=== PATIENT | female | born 1935 | race Caucasian/White ===

== ENCOUNTER 2019-03-07 14:46 | Observation (INO) | payer BC, MEDICARE ==
--- NOTE | 2019-03-07 15:12 | EDM.PDOC ---
ED HPI GENERAL MEDICAL PROBLEM - General Stated Complaint: BACK PAIN Time Seen by Provider: 03/07/19 14:50 Source of Information: Reports: Patient History Limitations: Reports: No Limitations - History of Present Illness INITIAL COMMENTS - FREE TEXT/NARRATIVE: This is a 83yo F who uses a walker that states she woke up this morning and was unable to get out of bed. She notes weakness of both legs and some tenderness or weakness of the right hip. It was reported that she has some back pain but then she states the weakness just hit her and she has been unable to get out of bed. Patient unable to recall date, time, month or year. She stated it was April, Sunday and then we told the patient. Later when we asked the patient she stated it was March and Sunday. Patient unable to recall items mentioned as well. Patient states she lived in a care center in the [facility] with hundreds of people. She states she left and lives in [facility] in a trailer by herself but with neighbors. She has daughters that live in the [facility]. Onset: Sudden Duration: Hour(s): Location: Reports: Pelvis, Lower Extremity, Left, Lower Extremity, Right Improves with: Reports: None Worsens with: Reports: None Associated Symptoms: Reports: Weakness - Related Data Allergies Allergy/AdvReac Type Severity Reaction Status Date / Time No Known Allergies Allergy Verified 03/07/19 15:34 Home Meds: Home Meds Aspirin 81 mg PO DAILY 03/19/16 [History] Acetaminophen [Tylenol Arthritis Pain] 650 mg PO Q4HR PRN #0 tab.er 04/25/16 [Rx ] Calcium Carbonate [Tums] 500 mg PO Q2HR PRN #0 tab.chew 04/25/16 [Rx] Docusate Sodium/Sennosides [Senna Plus] 1 tab PO BID tablet 04/25/16 [Rx] Nicotine [Habitrol] 14 mg TRDERM DAILY #30 patch 04/25/16 [Rx] Losartan [Cozaar] 25 mg PO DAILY 03/07/19 [History] Metoprolol Tartrate [Lopressor] 25 mg PO Q12HR 03/07/19 [History] Mirtazapine 7.5 mg PO DAILY 03/07/19 [History] amLODIPine [Norvasc] 5 mg PO DAILY 03/07/19 [History] atorvaSTATin [Lipitor] 10 mg PO BEDTIME 03/07/19 [History] Past Medical History HEENT History: Reports: Cataract Cardiovascular History: Reports: None, High Cholesterol, Hypertension Respiratory History: Reports: None Gastrointestinal History: Reports: Other (See Below) Other Gastrointestinal History: hx of colon ca with colectomy Other RN ONCOLOGY History: parity: 4, gravity: 4 , vaginal deliveries Musculoskeletal History: Reports: Back Pain, Chronic, Other (See Below) Other Musculoskeletal History: LE muscle weakness Neurological History: Reports: CVA Oncologic (Cancer) History: Reports: Colon Other Oncologic History: Hx of colon cancer- removed - Past Surgical History HEENT Surgical History: Reports: Cataract Surgery Musculoskeletal Surgical History: Reports: Hip Replacement, ORIF Social & Family History - Family History Family Medical History: Noncontributory ED ROS GENERAL - Review of Systems Review Of Systems: ROS reveals no pertinent complaints other than HPI. ED EXAM, NEURO - Physical Exam Exam: See Below Exam Limited By: No Limitations General Appearance: Alert, WD/WN, No Apparent Distress Eye Exam: Bilateral Eye: EOMI, PERRL Ears: Normal External Exam Nose: Normal Inspection Throat/Mouth: Normal Inspection Head Exam: Atraumatic, Normocephalic Neck: Normal Inspection, Supple, Non-Tender Respiratory/Chest: No Respiratory Distress, Lungs Clear, Normal Breath Sounds Cardiovascular: Normal Peripheral Pulses, Regular Rate, Rhythm GI/Abdominal: Normal Bowel Sounds Neurological: Alert, Normal Mood/Affect, Other (unable to get up per patient and states her legs are weak) Back Exam: Normal Inspection Extremities: Normal Inspection Psychiatric: Normal Affect, Normal Mood Skin Exam: Warm, Dry, Intact Course - Orders/Labs/Meds Orders: Active Orders 24 hr Category Date Time Status Patient Status [ADT] Routine ADT 03/07/19 15:55 Ordered Vital Signs [RC] Q4H Care 03/07/19 15:55 Ordered Heart Healthy Diet [DIET] Diet 03/07/19 Dinner Ordered Abdomen 1V Flat [CR] Stat Exams 03/07/19 14:59 Ordered Hip Min 2V w Pelvis Bi [CR] Stat Exams 03/07/19 14:59 Ordered Thoracolumbar 2V [CR] Stat Exams 03/07/19 14:59 Ordered CBC WITH AUTO DIFF [HEME] AM Lab 03/08/19 05:11 Ordered COMPREHENSIVE METABOLIC PN,CMP [CHEM] AM Lab 03/08/19 05:11 Ordered REVERSE T3, SERUM Stat Lab 03/07/19 15:53 Ordered THYROXINE (T4) FREE, DIRECT, S Stat Lab 03/07/19 15:53 Ordered UA RFX HARJINDER AND CULT IF INDIC [URIN] Stat Lab 03/07/19 15:02 Ordered VITAMIN B1 (THIAMINE), BLOOD Stat Lab 03/07/19 15:54 Ordered VITAMIN B12 Stat Lab 03/07/19 15:54 Ordered VITAMIN D, 25-HYDROXY Stat Lab 03/07/19 15:54 Ordered Acetaminophen [Tylenol Arthritis Pain] Med 03/07/19 15:56 Ordered 650 mg PO Q4HR PRN Aspirin Med 03/08/19 08:00 Ordered 81 mg PO DAILY Calcium Carbonate [Tums] Med 03/07/19 15:56 Ordered 500 mg PO Q2HR PRN Docusate Sodium/Sennosides [Senna Plus] Med 03/07/19 20:00 Ordered 1 tab PO BID Losartan [Cozaar] Med 03/08/19 08:00 Ordered 25 mg PO DAILY Metoprolol Tartrate [Lopressor] Med 03/07/19 20:00 Ordered 25 mg PO Q12HR Mirtazapine [Mirtazapine] Med 03/08/19 08:00 Ordered 7.5 mg PO DAILY Sodium Chloride 0.9% [Normal Saline] 1,000 ml Med 03/07/19 16:00 Ordered IV ASDIRECTED amLODIPine [Norvasc] Med 03/08/19 08:00 Ordered 5 mg PO DAILY atorvaSTATin [Lipitor] Med 03/07/19 20:00 Ordered 10 mg PO BEDTIME Medication Orders Acetaminophen (Tylenol Arthritis Pain) 650 mg PO Q4HR PRN PRN Reason: Pain Amlodipine Besylate (Norvasc) 5 mg PO DAILY [facility] Aspirin (Aspirin) 81 mg PO DAILY [facility] Atorvastatin Calcium (Lipitor) 10 mg PO BEDTIME [facility] Calcium Carbonate/Glycine (Tums) 500 mg PO Q2HR PRN PRN Reason: Indigestion Sodium Chloride (Normal Saline) 1,000 mls @ 100 mls/hr IV ASDIRECTED [facility] Losartan Potassium (Cozaar) 25 mg PO DAILY [facility] Metoprolol Tartrate (Lopressor) 25 mg PO Q12HR [facility] Non-Formulary Medication (Mirtazapine [Mirtazapine]) 7.5 mg PO DAILY [facility] Senna/Docusate Sodium (Senna Plus) 1 tab PO BID [facility] Labs: Laboratory Tests 03/07/19 03/07/19 03/07/19 Range/Units 15:00 15:00 15:00 WBC 16.0 H D (4.0-11.0) K/uL RBC 4.79 (3.80-5.80) M/uL Hgb 14.8 D (11.5-16.5) g/dL Hct 43.1 D (37.0-47.0) % MCV 90 (76-96) fL MCH 30.9 (27.0-32.0) pg MCHC 34.3 (31.0-35.0) g/dL RDW 14.6 (11.0-16.0) % Plt Count 236 (150-500) K/uL MPV 9.8 (6.0-10.0) fL Neut % (Auto) 81.6 H (45.0-70.0) % Lymph % (Auto) 14.7 L (20.0-40.0) % [place] % (Auto) 3.5 (3.0-10.0) % Eos % (Auto) 0.1 L (1.0-5.0) % Baso % (Auto) 0.1 (0.0-0.5) % Neut # (Auto) 13.02 H (2.00-7.50) K/uL Lymph # (Auto) 2.34 (1.50-4.00) K/uL [place] # (Auto) 0.56 (0.20-0.80) K/uL Eos # (Auto) 0.01 L (0.04-0.40) K/uL Baso # (Auto) 0.02 (0.02-0.10) K/uL Sodium 133 L (136-145) mmol/L Potassium 4.6 (3.5-5.1) mmol/L Chloride 97 L (98-107) mmol/L Carbon Dioxide 29.6 (21.0-32.0) mmol/L Anion Gap 11.0 (5.0-15.0) mmol/L BUN 15 (8-26) mg/dL Creatinine 0.87 (0.55-1.02) mg/dL Est Cr Clr Drug Dosing TNP Estimated GFR (MDRD) > 60 (>60) MLS/MIN BUN/Creatinine Ratio 17.2 (6-25) Glucose 132 H (74-100) mg/dL Calcium 9.3 (8.5-10.1) mg/dL TSH, Ultra Sensitive 47.751 H (0.358-3.740) uIU/mL Meds: Medications Generic Name Dose Route Start Last Admin Trade Name Freq PRN Reason Stop Dose Admin Acetaminophen 650 mg 03/07/19 15:56 Tylenol Arthritis Pain PO Q4HR PRN Pain Amlodipine Besylate 5 mg 03/08/19 08:00 Norvasc PO DAILY [facility] Aspirin 81 mg 03/08/19 08:00 Aspirin PO DAILY [facility] Atorvastatin Calcium 10 mg 03/07/19 20:00 Lipitor PO BEDTIME [facility] Calcium Carbonate/Glycine 500 mg 03/07/19 15:56 Tums PO Q2HR PRN Indigestion Sodium Chloride 1,000 mls @ 100 mls/hr 03/07/19 16:00 Normal Saline IV ASDIRECTED [facility] Losartan Potassium 25 mg 03/08/19 08:00 Cozaar PO DAILY [facility] Metoprolol Tartrate 25 mg 03/07/19 20:00 Lopressor PO Q12HR [facility] Non-Formulary Medication 7.5 mg 03/08/19 08:00 Mirtazapine [Mirtazapine] PO DAILY [facility] Senna/Docusate Sodium 1 tab 03/07/19 20:00 Senna Plus PO BID [facility] Departure - Departure Time of Disposition: 16:04 Disposition: Admitted As Inpatient 64 Condition: Good Clinical Impression: Delirium, Weakness, Hyponatremia, Elevated TSH Dementia Qualifiers: Dementia type: unspecified type Dementia behavioral disturbance: without behavioral disturbance Qualified Code(s): F03.90 - Unspecified dementia without behavioral disturbance Leukocytosis Qualifiers: Leukocytosis type: unspecified Qualified Code(s): D72.829 - Elevated white blood cell count, unspecified - Discharge Information Referrals: PCP,None [Primary Care Provider] - - My Orders Last 24 Hours: My Active Orders 03/07/19 14:59 Abdomen 1V Flat [CR] Stat Hip Min 2V w Pelvis Bi [CR] Stat Thoracolumbar 2V [CR] Stat 03/07/19 15:02 UA RFX HARJINDER AND CULT IF INDIC [URIN] Stat 03/07/19 15:53 REVERSE T3, SERUM Stat THYROXINE (T4) FREE, DIRECT, S Stat 03/07/19 15:54 VITAMIN B1 (THIAMINE), BLOOD Stat VITAMIN B12 Stat VITAMIN D, 25-HYDROXY Stat 03/07/19 15:55 Patient Status [ADT] Routine Vital Signs [RC] Q4H 03/07/19 15:56 Acetaminophen [Tylenol Arthritis Pain] 650 mg PO Q4HR PRN Calcium Carbonate [Tums] 500 mg PO Q2HR PRN 03/07/19 16:00 Sodium Chloride 0.9% [Normal Saline] 1,000 ml IV ASDIRECTED 03/07/19 20:00 Docusate Sodium/Sennosides [Senna Plus] 1 tab PO BID Metoprolol Tartrate [Lopressor] 25 mg PO Q12HR atorvaSTATin [Lipitor] 10 mg PO BEDTIME 03/07/19 Dinner Heart Healthy Diet [DIET] 03/08/19 05:11 CBC WITH AUTO DIFF [HEME] AM COMPREHENSIVE METABOLIC PN,CMP [CHEM] AM 03/08/19 08:00 Aspirin 81 mg PO DAILY Losartan [Cozaar] 25 mg PO DAILY Mirtazapine [Mirtazapine] 7.5 mg PO DAILY amLODIPine [Norvasc] 5 mg PO DAILY - Assessment/Plan Last 24 Hours: My Active Orders 03/07/19 14:59 Abdomen 1V Flat [CR] Stat Hip Min 2V w Pelvis Bi [CR] Stat Thoracolumbar 2V [CR] Stat 03/07/19 15:02 UA RFX HARJINDER AND CULT IF INDIC [URIN] Stat 03/07/19 15:53 REVERSE T3, SERUM Stat THYROXINE (T4) FREE, DIRECT, S Stat 03/07/19 15:54 VITAMIN B1 (THIAMINE), BLOOD Stat VITAMIN B12 Stat VITAMIN D, 25-HYDROXY Stat 03/07/19 15:55 Patient Status [ADT] Routine Vital Signs [RC] Q4H 03/07/19 15:56 Acetaminophen [Tylenol Arthritis Pain] 650 mg PO Q4HR PRN Calcium Carbonate [Tums] 500 mg PO Q2HR PRN 03/07/19 16:00 Sodium Chloride 0.9% [Normal Saline] 1,000 ml IV ASDIRECTED 03/07/19 20:00 Docusate Sodium/Sennosides [Senna Plus] 1 tab PO BID Metoprolol Tartrate [Lopressor] 25 mg PO Q12HR atorvaSTATin [Lipitor] 10 mg PO BEDTIME 03/07/19 Dinner Heart Healthy Diet [DIET] 03/08/19 05:11 CBC WITH AUTO DIFF [HEME] AM COMPREHENSIVE METABOLIC PN,CMP [CHEM] AM 03/08/19 08:00 Aspirin 81 mg PO DAILY Losartan [Cozaar] 25 mg PO DAILY Mirtazapine [Mirtazapine] 7.5 mg PO DAILY amLODIPine [Norvasc] 5 mg PO DAILY
[2019-03-07] MEDS ORDERED: Calcium Carbonate 500 MG Tab.Chew PO PRN (15:56)
[2019-03-07] MEDS: Sodium Chloride 0.9% 1,000 ML IV SCH (16:38)
[2019-03-07] MEDS: Acetaminophen 650 MG Tab.ER PO PRN (19:32)
[2019-03-07] MEDS: Metoprolol Tartrate 25 MG Tab PO SCH (19:32)
[2019-03-07] MEDS ORDERED: atorvaSTATin 10 MG Tab PO SCH (20:00)
[2019-03-08] MEDS: Sodium Chloride 0.9% 1,000 ML IV SCH ×3 (02:43→12:07)
[2019-03-08] MEDS: Acetaminophen 650 MG Tab.ER PO PRN ×2 (07:41→13:05)
[2019-03-08] MEDS: Metoprolol Tartrate 25 MG Tab PO SCH (07:43)
[2019-03-08] MEDS ORDERED: Losartan 25 MG Tab PO SCH (08:00)
[2019-03-08] MEDS ORDERED: Non-Formulary Medication 1 Each (Mirtazapine [Mirtazapine] 7.5 MG) PO SCH (08:00)
[2019-03-08] MEDS ORDERED: Aspirin 81 MG Tab.Chew PO SCH (08:00)
[2019-03-08] MEDS ORDERED: amLODIPine 5 MG Tab PO SCH (08:00)
[2019-03-08 12:15] VITALS: BP 122/80; PULSE 56
--- NOTE | 2019-03-08 12:49 | PCM.DCSUM1 ---
Discharge Summary - Hospital Course Diagnosis: Stroke: No - Discharge Data Discharge Date: 03/08/19 Discharge Disposition: Home, Self-Care 01 Condition: Fair - Discharge Diagnosis/Problem(s) (1) Delirium SNOMED Code(s): 7873664 ICD Code: R41.0 - DISORIENTATION, UNSPECIFIED Status: Resolved Priority: High Current Visit: Yes Problem Details: This is due in part to dementia or CVA related history. She was dehydrated and concerns of nutrition and hydration have been addressed with family. Family understand the need for further monitoring and cares. (2) Dementia SNOMED Code(s): 07952846 ICD Code: F03.90 - UNSPECIFIED DEMENTIA WITHOUT BEHAVIORAL DISTURBANCE Status: Suspected Priority: High Current Visit: Yes Problem Details: Family have noticed memory issues in the past and felt it may have been from her CVA. Her CVA is over 2 years ago. Discussed with reanna Perrin regarding care and close monitoring and that patient should not be left alone or live alone any more but that with close support that she may be able to transition to care with family. At this time family feel comfortable to have members check on her daily at [facility] and do not have any concerns with this. Discussed risks and issues that may occur and family understand the risks and are willing to check in on her daily and more as needed. Discussed the eventual need for constant care and redirection and living with someone. Aydin will discuss further with family of the concerns. Qualifiers: Dementia type: unspecified type Dementia behavioral disturbance: without behavioral disturbance Qualified Code(s): F03.90 - Unspecified dementia without behavioral disturbance (3) Elevated TSH SNOMED Code(s): 583144589 ICD Code: R79.89 - OTHER SPECIFIED ABNORMAL FINDINGS OF BLOOD CHEMISTRY Status: Acute Priority: High Current Visit: Yes Problem Details: Patient will follow up in clinic this week for T3 and T4 results and management. Family notified and agree with plan of care and f/u. (4) Hyponatremia SNOMED Code(s): 61355979 ICD Code: E87.1 - HYPO-OSMOLALITY AND HYPONATREMIA Status: Acute Current Visit: Yes (5) Leukocytosis SNOMED Code(s): 353028162, 061410985 ICD Code: D72.829 - ELEVATED WHITE BLOOD CELL COUNT, UNSPECIFIED Status: Acute Current Visit: Yes Problem Details: Resolving. Likely from dehydration and stress. F/u in clinic as directed. Qualifiers: Leukocytosis type: unspecified Qualified Code(s): D72.829 - Elevated white blood cell count, unspecified (6) Weakness SNOMED Code(s): 34368303 ICD Code: R53.1 - WEAKNESS Status: Chronic Priority: High Current Visit : Yes Problem Details: Chronic weakness and when dehydrated she became too weak to get up. After hydration patient is doing well and fully ambulatory without a walker. Counseled family members of this situation and concerns. Family will follow up in clinic and at home. (7) CVA (cerebral vascular accident) SNOMED Code(s): 788020367 ICD Code: I63.9 - CEREBRAL INFARCTION, UNSPECIFIED Status: Acute Current Visit: No Problem Details: History of CVA 2 years ago. Per family it did cause her to use a walker due to weakness and have memory issues. - Patient Summary/Data Consults: Consultations 03/07/19 16:17 Consult to Occupational Therapy [OT Evaluation and Treatment] [CONS] Routine Please Evaluate and Treat. OT Reason for Consult: ADL's This query below is only for informational purposes and is not editable. Admission Diagnosis/Problem: Delirium Consult to Physical Therapy [PT Evaluation and Treatment] [CONS] Routine Please Evaluate and Treat. PT Reason for Consult: Ambulation This query below is only for informational purposes and is not editable. Admission Diagnosis/Problem: Delirium - Patient Instructions Diet: Usual Diet as Tolerated Activity: As Tolerated, No Strenuous Activities, Rest and Relax Today - Discharge Plan Home Medications: Home Meds Aspirin 81 mg PO DAILY 03/19/16 [History] Acetaminophen [Tylenol Arthritis Pain] 650 mg PO Q4HR PRN #0 tab.er 04/25/16 [Rx ] Calcium Carbonate [Tums] 500 mg PO Q2HR PRN #0 tab.chew 04/25/16 [Rx] Docusate Sodium/Sennosides [Senna Plus] 1 tab PO BID tablet 04/25/16 [Rx] Nicotine [Habitrol] 14 mg TRDERM DAILY #30 patch 04/25/16 [Rx] Losartan [Cozaar] 25 mg PO DAILY 03/07/19 [History] Metoprolol Tartrate [Lopressor] 25 mg PO Q12HR 03/07/19 [History] Mirtazapine 7.5 mg PO DAILY 03/07/19 [History] amLODIPine [Norvasc] 5 mg PO DAILY 03/07/19 [History] atorvaSTATin [Lipitor] 10 mg PO BEDTIME 03/07/19 [History] Referrals: PCP,None [Primary Care Provider] - - Discharge Summary/Plan Comment DC Time >30 min.: Yes Discharge Summary/Plan Comment: Called Aydin [phone] Left message for Katarina Yoan [phone] (Aydin will discuss with Katarina) Left message for Lino [phone] Left message for Michelle [phone] Discussed in length care for patient with Aydin when he called back. He will discuss with the rest of the family but both Aydin and Katarina are POA. Discussed dementia care and the need for multimedia coordinator care and that she is at a point where she likely cannot live alone. Discussed dehydration, poor nutrition , and other factors. Discussed elevated TSH and f/u T3 T4 in the clinic for management of likely hypothyroidism. Discussed close monitoring and Aydin will arrange for family to check in daily and more as needed for her mother at [place]. Aydin and other 3 daughters live in the [facility]. Called and discussed management and close monitoring with Francisco (Niece) who will be picking up Mrs. Colunga. She understands the need for close monitoring and check in with Brittni. Neighbor Jen Jones did stop by. Fatmata Diggs was unreachable despite being an emergency contact. Patient does want to go home and denies any pain, or weakness at this time. We will discharge to care of family and have her f/u in clinic as directed. Family (Aydin) agree with close care and monitoring and follow up of this patient. - Patient Data Vitals - Most Recent: Last Vital Signs Temp 36.6 C 03/08/19 12:00 Pulse 56 L 03/08/19 12:00 Resp 17 03/08/19 12:00 BP 122/80 03/08/19 12:00 Pulse Ox 97 03/08/19 12:00 Weight - Most Recent: 61.961 kg I&O - Last 24 hours: Intake & Output 03/07/19 03/08/19 03/08/19 22:59 06:59 14:59 Intake Total 200 1200 Balance 200 1200 Lab Results - Last 24 hrs: Laboratory Results - last 24 hr 03/07/19 03/07/19 03/07/19 Range/Units 15:00 15:00 15:00 WBC 16.0 H D (4.0-11.0) K/uL RBC 4.79 (3.80-5.80) M/uL Hgb 14.8 D (11.5-16.5) g/dL Hct 43.1 D (37.0-47.0) % MCV 90 (76-96) fL MCH 30.9 (27.0-32.0) pg MCHC 34.3 (31.0-35.0) g/dL RDW 14.6 (11.0-16.0) % Plt Count 236 (150-500) K/uL MPV 9.8 (6.0-10.0) fL Neut % (Auto) 81.6 H (45.0-70.0) % Lymph % (Auto) 14.7 L (20.0-40.0) % [place] % (Auto) 3.5 (3.0-10.0) % Eos % (Auto) 0.1 L (1.0-5.0) % Baso % (Auto) 0.1 (0.0-0.5) % Neut # (Auto) 13.02 H (2.00-7.50) K/uL Lymph # (Auto) 2.34 (1.50-4.00) K/uL [place] # (Auto) 0.56 (0.20-0.80) K/uL Eos # (Auto) 0.01 L (0.04-0.40) K/uL Baso # (Auto) 0.02 (0.02-0.10) K/uL Sodium 133 L (136-145) mmol/L Potassium 4.6 (3.5-5.1) mmol/L Chloride 97 L (98-107) mmol/L Carbon Dioxide 29.6 (21.0-32.0) mmol/L Anion Gap 11.0 (5.0-15.0) mmol/L BUN 15 (8-26) mg/dL Creatinine 0.87 (0.55-1.02) mg/dL Est Cr Clr Drug Dosing TNP Estimated GFR (MDRD) > 60 (>60) MLS/MIN BUN/Creatinine Ratio 17.2 (6-25) Glucose 132 H (74-100) mg/dL Calcium 9.3 (8.5-10.1) mg/dL Total Bilirubin (0.0-1.0) mg/dL AST (15-37) U/L ALT (12-78) U/L Alkaline Phosphatase (46-116) U/L Total Protein (6.4-8.2) g/dL Albumin (3.4-5.0) g/dL Globulin (2.2-4.2) g/dL Albumin/Globulin Ratio (0.8-2.0) TSH, Ultra Sensitive 47.751 H (0.358-3.740) uIU/mL Urine Color Urine Appearance (CLEAR) Urine pH (5.0-8.0) Ur Specific [place] (1.003-1.030) Urine Protein (NEGATIVE) mg/dL Urine Glucose (UA) (NEGATIVE) mg/dL Urine Ketones (NEGATIVE) mg/dL Urine Occult Blood (NEGATIVE) Urine Nitrite (NEGATIVE) Urine Bilirubin (NEGATIVE) Urine Urobilinogen (0.2-1.0) E.U./dL Ur Leukocyte Esterase (NEGATIVE) Urine RBC /HPF Urine WBC /HPF Amorphous Sediment /HPF 03/07/19 03/08/19 03/08/19 Range/Units Unknown 08:23 08:23 WBC 12.3 H D (4.0-11.0) K/uL RBC 4.36 (3.80-5.80) M/uL Hgb 13.4 (11.5-16.5) g/dL Hct 39.5 (37.0-47.0) % MCV 91 (76-96) fL MCH 30.7 (27.0-32.0) pg MCHC 33.9 (31.0-35.0) g/dL RDW 14.6 (11.0-16.0) % Plt Count 221 (150-500) K/uL MPV 9.4 (6.0-10.0) fL Neut % (Auto) 69.4 (45.0-70.0) % Lymph % (Auto) 24.8 (20.0-40.0) % [place] % (Auto) 5.4 (3.0-10.0) % Eos % (Auto) 0.2 L (1.0-5.0) % Baso % (Auto) 0.2 (0.0-0.5) % Neut # (Auto) 8.51 H (2.00-7.50) K/uL Lymph # (Auto) 3.04 (1.50-4.00) K/uL [place] # (Auto) 0.66 (0.20-0.80) K/uL Eos # (Auto) 0.03 L (0.04-0.40) K/uL Baso # (Auto) 0.02 (0.02-0.10) K/uL Sodium 136 (136-145) mmol/L Potassium 4.0 (3.5-5.1) mmol/L Chloride 100 (98-107) mmol/L Carbon Dioxide 27.9 (21.0-32.0) mmol/L Anion Gap 12.1 (5.0-15.0) mmol/L BUN 10 D (8-26) mg/dL Creatinine 0.84 (0.55-1.02) mg/dL Est Cr Clr Drug Dosing 36.95 Estimated GFR (MDRD) > 60 (>60) MLS/MIN BUN/Creatinine Ratio 11.9 (6-25) Glucose 111 H (74-100) mg/dL Calcium 8.6 (8.5-10.1) mg/dL Total Bilirubin 0.6 D (0.0-1.0) mg/dL AST 40 H (15-37) U/L ALT 28 (12-78) U/L Alkaline Phosphatase 78 (46-116) U/L Total Protein 7.2 (6.4-8.2) g/dL Albumin 3.7 (3.4-5.0) g/dL Globulin 3.5 (2.2-4.2) g/dL Albumin/Globulin Ratio 1.1 (0.8-2.0) TSH, Ultra Sensitive (0.358-3.740) uIU/mL Urine Color Yellow Urine Appearance Cloudy (CLEAR) Urine pH 6.5 (5.0-8.0) Ur Specific [place] 1.025 (1.003-1.030) Urine Protein Trace H (NEGATIVE) mg/dL Urine Glucose (UA) Negative (NEGATIVE) mg/dL Urine Ketones Trace H (NEGATIVE) mg/dL Urine Occult Blood Trace-lysed H (NEGATIVE) Urine Nitrite Negative (NEGATIVE) Urine Bilirubin Negative (NEGATIVE) Urine Urobilinogen 0.2 (0.2-1.0) E.U./dL Ur Leukocyte Esterase Negative (NEGATIVE) Urine RBC Not seen /HPF Urine WBC 0-5 H /HPF Amorphous Sediment Many /HPF Med Orders - Current: Current Medications Acetaminophen (Tylenol Arthritis Pain) 650 mg PO Q4HR PRN PRN Reason: Pain Last Admin: 03/08/19 07:41 Dose: 650 mg Amlodipine Besylate (Norvasc) 5 mg PO DAILY [facility] Last Admin: 03/08/19 07:43 Dose: 5 mg Aspirin (Aspirin) 81 mg PO DAILY [facility] Last Admin: 03/08/19 07:42 Dose: 81 mg Atorvastatin Calcium (Lipitor) 10 mg PO BEDTIME [facility] Last Admin: 03/07/19 19:33 Dose: 10 mg Calcium Carbonate/Glycine (Tums) 500 mg PO Q2HR PRN PRN Reason: Indigestion Last Admin: 03/07/19 23:15 Dose: 500 mg Sodium Chloride (Normal Saline) 1,000 mls @ 100 mls/hr IV ASDIRECTED [facility] Last Admin: 03/08/19 12:07 Dose: 75 mls/hr Losartan Potassium (Cozaar) 25 mg PO DAILY [facility] Last Admin: 03/08/19 07:42 Dose: 25 mg Metoprolol Tartrate (Lopressor) 25 mg PO Q12HR [facility] Last Admin: 03/08/19 07:43 Dose: 25 mg Non-Formulary Medication (Mirtazapine [Mirtazapine]) 7.5 mg PO DAILY [facility] Last Admin: 03/08/19 10:11 Dose: Not Given Senna/Docusate Sodium (Senna Plus) 1 tab PO BID [facility] Last Admin: 03/08/19 07:44 Dose: 1 tab
--- NOTE | 2019-03-09 10:59 | CR ---
DATE OF SERVICE: 03/07/19 CLINICAL DATA: weakness LUMBAR SPINE: No priors. There is diffuse osteopenia. No acute fracture or dislocation. There is degenerative disc disease throughout the lower thoracic and lumbar spine with disc space narrowing diffusely. There is facet joint hypertrophy throughout the lumbar spine. There is calcification of the abdominal aorta. [id number] [facility]
--- NOTE | 2019-03-09 11:01 | CR ---
DATE OF SERVICE: 03/07/19 CLINICAL DATA: weakness AP PELVIS: The iliac bones are partially cut off The patient is status post right bilateral total hip arthroplasty with provision on the right. No acute abnormalities. [id number] [facility]
--- NOTE | 2019-03-09 11:07 | CR ---
DATE OF SERVICE: 03/07/19 CLINICAL DATA: weakness SUPINE ABDOMEN: There is some small bowel gas. No dilated loops of bowel. There is a moderate amount of stool noted in the visualized colon. No other significant findings. [id number] [facility]
== END 2019-03-08 14:05 | disposition home or self-care (01) ==
LOC: LB.ED 14:46 → INTOOBSV 15:55 → LB.MS 15:55
PROVIDERS: ADMIT Family Medicine; ATTEND Family Medicine
DX: R41.0 Disorientation, unspecified (principal); R53.1 Weakness; E87.1 Hypo-osmolality and hyponatremia; F03.90 Unspecified dementia, unspecified severity, without behavioral disturbance, psychotic disturbance, mood disturbance, and anxiety; D72.829 Elevated white blood cell count, unspecified; I69.959 Hemiplegia and hemiparesis following unspecified cerebrovascular disease affecting unspecified side; I10 Essential (primary) hypertension; I69.911 Memory deficit following unspecified cerebrovascular disease; R79.89 Other specified abnormal findings of blood chemistry; E86.0 Dehydration; E03.9 Hypothyroidism, unspecified; E78.00 Pure hypercholesterolemia, unspecified; Z85.038 Personal history of other malignant neoplasm of large intestine; Z90.49 Acquired absence of other specified parts of digestive tract; M54.9 Dorsalgia, unspecified; G89.29 Other chronic pain; Z79.82 Long term (current) use of aspirin; Z96.649 Presence of unspecified artificial hip joint; Z79.899 Other long term (current) drug therapy
CPT/HCPCS: 36415; 72080; 72170; 74018; 80048; 80053; 81001; 82306; 82607; 84425; 84439; 84443; 84482; 85025; 99284; A9270; J7030; 96360; 96361; 99217; 99219; A0425; A0428

== ENCOUNTER 2019-05-16 10:15 | Emergency (ER) | payer MEDICARE ==
--- NOTE | 2019-05-16 10:37 | EDM.PDOC ---
ED HPI GENERAL MEDICAL PROBLEM - General Stated Complaint: BACK PAIN Time Seen by Provider: 05/16/19 10:20 Source of Information: Reports: Patient History Limitations: Reports: No Limitations - History of Present Illness INITIAL COMMENTS - FREE TEXT/NARRATIVE: According to patient she claims she has had pain in her back for past 1 wk, most of her pain is in the lower back. Hurts to twist and turn. No fall or injury to the back. Also patient is concerned if she has UTI. But she does not have increased frequency or urination or burning with urination. Onset: Gradual Onset Date: 05/09/19 Duration: Waxing/Waning Location: Reports: Back Quality: Reports: Ache Severity: Severe Improves with: Reports: None Worsens with: Reports: None, Movement Associated Symptoms: Denies: Confusion, Chest Pain, Cough, Diaphoresis, Nausea/ Vomiting - Related Data Allergies Allergy/AdvReac Type Severity Reaction Status Date / Time No Known Allergies Allergy Verified 05/16/19 10:33 Home Meds: Home Meds Aspirin 81 mg PO DAILY 03/19/16 [History] Acetaminophen [Tylenol Arthritis Pain] 650 mg PO Q4HR PRN #0 tab.er 04/25/16 [Rx ] Calcium Carbonate [Tums] 500 mg PO Q2HR PRN #0 tab.chew 04/25/16 [Rx] Docusate Sodium/Sennosides [Senna Plus] 1 tab PO BID tablet 04/25/16 [Rx] Losartan [Cozaar] 25 mg PO DAILY 03/07/19 [History] Metoprolol Tartrate [Lopressor] 25 mg PO Q12HR 03/07/19 [History] Mirtazapine 7.5 mg PO DAILY 03/07/19 [History] amLODIPine [Norvasc] 5 mg PO DAILY 03/07/19 [History] atorvaSTATin [Lipitor] 10 mg PO BEDTIME 03/07/19 [History] Levothyroxine 25 mcg PO ACBREAKFAST #90 tab 03/12/19 [Rx] Past Medical History HEENT History: Reports: Cataract Cardiovascular History: Reports: High Cholesterol, Hypertension Respiratory History: Reports: None Gastrointestinal History: Reports: Other (See Below) Other Gastrointestinal History: hx of colon ca with colectomy Other REPEATER CHIEF History: parity: 4, gravity: 4 , vaginal deliveries Musculoskeletal History: Reports: Back Pain, Chronic, Other (See Below) Other Musculoskeletal History: LE muscle weakness Neurological History: Reports: CVA Oncologic (Cancer) History: Reports: Colon Other Oncologic History: Hx of colon cancer- removed - Past Surgical History HEENT Surgical History: Reports: Cataract Surgery Musculoskeletal Surgical History: Reports: Hip Replacement, ORIF Social & Family History - Family History Family Medical History: Noncontributory - Caffeine Use Caffeine Use: Reports: Coffee ED ROS GENERAL - Review of Systems Review Of Systems: See Below Constitutional: Denies: Fever, Chills, Malaise, Weakness HEENT: Denies: Rhinitis, Throat Pain Respiratory: Denies: Shortness of Breath, Pleuritic Chest Pain, Cough, Sputum Cardiovascular: Denies: Chest Pain, Lightheadedness Endocrine: Denies: Fatigue GI/Abdominal: Denies: Abdominal Pain, Nausea, Vomiting : Denies: Dysuria, Frequency Musculoskeletal: Denies: Joint Pain, Joint Swelling Skin: Denies: Bruising, Pruritis, Rash Neurological: Denies: Confusion, Dizziness, Headache, Numbness, Tingling ED EXAM, GENERAL - Physical Exam Exam: See Below Exam Limited By: No Limitations General Appearance: Alert, WD/WN, No Apparent Distress Eye Exam: Bilateral Eye: EOMI, PERRL Ears: Normal External Exam, Normal Canal, Hearing Grossly Normal, Normal TMs Ear Exam: Bilateral Ear: Auricle Normal, Canal Normal, TM normal Nose: Normal Inspection, Normal Mucosa, No Blood Throat/Mouth: Normal Inspection, Normal Lips, Normal Teeth, Normal Gums, Normal Oropharynx, Normal Voice, No Airway Compromise Head: Atraumatic, Normocephalic Neck: Normal Inspection, Supple, Non-Tender, Full Range of Motion Respiratory/Chest: No Respiratory Distress, Lungs Clear, Normal Breath Sounds, No Accessory Muscle Use, Chest Non-Tender Cardiovascular: Normal Peripheral Pulses, Regular Rate, Rhythm, No Edema, No Gallop, No JVD, No Murmur, No Rub GI/Abdominal: Normal Bowel Sounds, Soft, Non-Tender, No Organomegaly, No Distention, No Abnormal Bruit, No Mass Back Exam: Normal Inspection, Full Range of Motion, Other (Pt is tender over the SI joints to pressure.). No: CVA Tenderness (R), CVA Tenderness (L), Vertebral Tenderness Extremities: Normal Inspection, Normal Range of Motion, Normal Capillary Refill Course - Vital Signs Text/Narrative:: Pt has had low back pain for about a week.On exam all her tenderness is over the Si joint B/L she has strained her Si joint, by activities, like twisting, turning , stooping or bending forward. 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 Her pain is mechanical in nature.Pt requested UA, and her UA shows leucs and more then 100 WBC. She is asymptomatic, this could be bacteruria , but patient wants to be treated. I am treating it as uncomplicated UTI with cipro 250mg BID for 3 days. Advised plenty of fluids.. Started her on diclofenac sodium 25mg 3 times daily for pain control. Intermittent heat to the back 3-4 times daily. Avoid twisting , squatting or bending forward activities until pain resolves. Pain should gradually improve. Followup in clinic if symptoms not better in 1 wk. - Orders/Labs/Meds Orders: Active Orders 24 hr Category Date Time Status Sacroiliac Joint 2V [CR] Stat Exams 05/16/19 10:33 Taken CULTURE URINE [RM] Stat Lab 05/16/19 10:40 Received Labs: Laboratory Tests 05/16/19 Range/Units 10:40 Urine Color Yellow Urine Appearance Cloudy (CLEAR) Urine pH 6.0 (5.0-8.0) Ur Specific [place] 1.020 (1.003-1.030) Urine Protein Negative (NEGATIVE) mg/dL Urine Glucose (UA) Negative (NEGATIVE) mg/dL Urine Ketones Negative (NEGATIVE) mg/dL Urine Occult Blood Negative (NEGATIVE) Urine Nitrite Positive H (NEGATIVE) Urine Bilirubin Negative (NEGATIVE) Urine Urobilinogen 0.2 (0.2-1.0) E.U./dL Ur Leukocyte Esterase Small H (NEGATIVE) Urine RBC 0-5 H /HPF Urine WBC >100 H /HPF Urine WBC Clumps Many /HPF Ur Squamous Epith Cells Moderate /HPF Urine Bacteria Many H /HPF Departure - Departure Time of Disposition: 11:40 Disposition: Home, Self-Care 01 Condition: Fair Clinical Impression: Sacroiliac strain, UTI (urinary tract infection), uncomplicated - Discharge Information *PRESCRIPTION DRUG MONITORING PROGRAM REVIEWED*: Not Applicable *COPY OF PRESCRIPTION DRUG MONITORING REPORT IN PATIENT LOIDA: Not Applicable Referrals: PCP,None [Primary Care Provider] - - Problem List & Annotations (1) Sacroiliac strain SNOMED Code(s): 247983379, 594657718 Code(s): S39.012A - STRAIN OF MUSCLE, FASCIA AND TENDON OF LOWER BACK, INIT Status: Acute Current Visit: Yes (2) UTI (urinary tract infection), uncomplicated SNOMED Code(s): 86091489 Code(s): N39.0 - URINARY TRACT INFECTION, SITE NOT SPECIFIED Status: Acute Current Visit: Yes - Problem List Review Problem List Initiated/Reviewed/Updated: Yes - My Orders Last 24 Hours: My Active Orders 05/16/19 10:33 Sacroiliac Joint 2V [CR] Stat 05/16/19 10:40 CULTURE URINE [RM] Stat - Assessment/Plan Last 24 Hours: My Active Orders 05/16/19 10:33 Sacroiliac Joint 2V [CR] Stat 05/16/19 10:40 CULTURE URINE [RM] Stat Assessment:: SI joint strain UTI Plan: Pt has had low back pain for about a week.On exam all her tenderness is over the Si joint B/L she has strained her Si joint, by activities, like twisting, turning , stooping or bending forward. 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 Her pain is mechanical in nature.Pt requested UA, and her UA shows leucs and more then 100 WBC. She is asymptomatic, this could be bacteruria , but patient wants to be treated. I am treating it as uncomplicated UTI with cipro 250mg BID for 3 days. Advised plenty of fluids.. Started her on diclofenac sodium 25mg 3 times daily for pain control. Intermittent heat to the back 3-4 times daily. Avoid twisting , squatting or bending forward activities until pain resolves. Pain should gradually improve. Followup in clinic if symptoms not better in 1 wk.
--- NOTE | 2019-05-16 12:03 | CR ---
DATE OF SERVICE: 05/16/19 CLINICAL DATA: SI joint tenderness PELVIS AND BOTH HIPS: No priors. There is diffuse osteopenia. The patient is status post bilateral total hip arthroplasty. The visualized prostheses appear intact. No acute abnormalities. [id number] [facility]
== END 2019-05-16 11:34 | disposition home or self-care (01) ==
LOC: LB.ED 10:15
DX: S39.012A Strain of muscle, fascia and tendon of lower back, initial encounter (principal); N39.0 Urinary tract infection, site not specified; I10 Essential (primary) hypertension; E78.00 Pure hypercholesterolemia, unspecified; Z79.82 Long term (current) use of aspirin; Z79.899 Other long term (current) drug therapy; X58.XXXA Exposure to other specified factors, initial encounter
CPT/HCPCS: 72200; 81001; 87086; 87088; 87186; 99283; 99283-25

== ENCOUNTER 2021-04-10 09:34 | Observation (INO) | payer MEDICARE ==
[2021-04-10] MEDS ORDERED: LORazepam 2 MG/ML SDV IVPUSH ONE (09:38)
[2021-04-10] MEDS ORDERED: Sodium Chloride 0.9% 1,000 ML IV SCH (10:45)
--- NOTE | 2021-04-10 11:46 | HP ---
This is an admission history and physical as well as emergency room note. REASON FOR ADMISSION: Possible seizure. HISTORY: This 85-year-old woman with dementia and a past history of CVA 4 years ago, was diagnosed with a seizure disorder after she had her first seizure in December 2020. It was felt that this was a sequelae to her past the CVA and she was not treated with anything. However, 10 days later, she broke through, she had another grand mal-type seizure and was started on Keppra by her physicians at [facility] in the [facility] [place]. I do not know if she has had any Keppra levels ever drawn. She does have a history of dementia, which has been evolving over the past few years and according to the family including the daughter and two [id number], it has been her expressed desire to be a no-code status with DNI and DNR. This morning, she was staying at her [id number]-[id number]-[id number]'s house when she got up early this morning and went to use the bathroom. She returned to the bedroom. Nothing unusual was noted by the [id number], however, about an hour later, she heard some loud snoring coming from the patient's room. She went into the room and found the patient to be lying on her side, snoring quite loudly and was unresponsive to any verbal stimulus or any shaking, etc. She has an area of saliva and blood on her pillow. The daughter in-law immediately surmised that she could have had a seizure and bit her tongue and that was causing some bleeding and salivation onto the pillow. She did move all four extremities when the daughter did try to move her and did withdraw to any tactile stimulation at that time. The ambulance was called and arrived at the scene. Her initial blood pressure there was 162/118 with a heart rate between 110 and 120. They observed her to be nonresponsive as she did open her eyes slightly and occasionally to verbal stimulation and to painful stimulation. Her transport was otherwise unremarkable and uneventful. PAST MEDICAL HISTORY: 1. Seizure disorder as described above, currently on Keppra. 2. History of delirium. 3. Dementia. 4. History of CVA, 4 years ago. 5. Hypertension. 6. Hypercholesterolemia. 7. History of colon resection for cancer many years ago. 8. Hip fracture, status post open reduction internal fixation. MEDICATIONS: Include the following. 1. Keppra (dose uncertain at this time). 2. Atorvastatin. 3. Amlodipine. 4. Mirtazapine. 5. Metoprolol. 6. Losartan. 7. Levothyroxine. 8. Aspirin. ALLERGIES: NONE TO MEDICATIONS. REVIEW OF SYSTEMS: Pertinent positives and negatives as listed in the HPI. There has been no history of any kind of trauma that anyone is aware of. She has been afebrile with no evidence of illness of any sort systemically. PHYSICAL EXAMINATION: She is snoring somewhat and does open her eyes slightly somewhat spontaneously, but definitely she opens it transiently to a painful stimulus. She does withdraw to pain. She does not respond to any verbal commands. VITAL SIGNS: She is afebrile. Heart rate 102, blood pressure 164/75, respiratory rate 21, O2 sats 100% on O2 at 15 L/minute. HEENT: Pupils are mid-position react to light. OROPHARYNX: There is some dried blood about the mouth. TMs, no hemotympanum is noted. There is no external evidence of trauma. NECK: Supple. No bruits. CHEST: Clear to auscultation with good air exchange. CARDIAC: Regular rate without murmur. ABDOMEN: Soft and nontender. No masses. EXTREMITIES: Warm, pink, slight edema in both ankles, no deformities. SKIN: No rashes. NEUROLOGIC: She does move all four extremities to painful stimulation. She did exhibit some spontaneous movement. She does not respond to any verbal stimulation except for some eye opening. FURTHER EMERGENCY ROOM COURSE: We ascertained that her airway was adequate and that she was oxygenating reasonably well. IV was inserted, blood was drawn, and labs were obtained. Preliminary neurologic examination was done and she was sent off to CT scanning to rule out stroke. Their report is pending on this, but on my evaluation of the CT scan, I do not see any gross evidence of infarct or bleed. A 12-lead EKG does not show any definite signs of acute ischemia and does not seem to be significantly changed from the last EKG that we have from 4 years ago. CBC shows that she has leukocytosis with a white count of 18,400. Her hemoglobin is 13.5. Her CMP has some mild borderline changes, nothing of significance. She does have a sodium of 134, her potassium is 3.7, her CO2 content is 20.4 with an anion gap of 16.3. Her creatinine is 0.76. Her glucose was checked at bedside and there is CMP, it was 143 and 161 respectively. Her liver enzymes are not elevated. Her troponin 1 was normal at 0.037. Her urine was unremarkable with no sign of urinary tract infection. Her chest x-ray does not show any evidence of active pulmonary disease or pneumonia. IMPRESSION: 1. Clinically, it appears that she quite likely has suffered a seizure. 2. Dementia. 3. History of cerebrovascular accident. PLAN: While in the emergency room, she did receive one dose of 5 mg of lorazepam because she was quite combative and we were having difficulty obtaining blood and inserting an IV. She is therefore sleepy at this time, but not exhibiting any seizure activity. I discussed the patient and our findings and my impression with the patient's two [id number] and her daughter by phone, who lives in the [facility] [place]. They expressed the desire that she be DNI and DNR and we will comply with those wishes. We will admit her to the hospital and observe her and obtain a Keppra level and make any adjustments as indicated. The family understands and agrees with this plan. All questions were answered. CANDY
--- NOTE | 2021-04-10 13:55 | CR ---
DATE OF SERVICE: 04/10/21 CLINICAL DATA: unresponsive AP CHEST: No priors. The heart size is at the upper limits of normal. The aorta is calcified and ectatic. The lungs are clear. No pneumothorax. No pleural effusions. No evidence of acute intrathoracic disease. [id number] [facility]
--- NOTE | 2021-04-10 13:59 | CT ---
DATE OF SERVICE: 04/10/21 CLINICAL DATA: unresponsive UNENHANCED BRAIN CT: Multi slice axial acquisition was performed. Comparison is made to a prior exam dated 03/08/16. There is diffuse cerebral atrophy. There are extensive periventricular lucencies bilaterally consistent with small vessel ischemic change. There is a small area of encephalomalacia in the left occipital region, consistent with a prior infarct. There are lucencies in the basal ganglia bilaterally, consistent with old lacunar infarcts. There is also a lucency in the left thalamus, consistent with prior lacunar infarct. No masses or mass effect. No intracranial hemorrhage. No evidence of acute or subacute infarct. No osseous abnormalities. There is a rounded low density lesion in the right sphenoid sinus, consistent with a retention cyst or polyp. No other significant findings. IMPRESSION: No acute intracranial abnormalities. [id number] [facility]
[2021-04-10] MEDS ORDERED: diphenhydrAMINE 25 MG Cap PO PRN (17:56)
[2021-04-10] MEDS: LEVETIRACETAM 500 MG PO SCH (20:53)
[2021-04-11] MEDS: LEVETIRACETAM 500 MG PO SCH ×2 (09:12→20:44)
[2021-04-11] MEDS: Losartan 25 MG Tab PO SCH (10:54)
[2021-04-11] MEDS: Levothyroxine 50 MCG Tab PO SCH (10:54)
[2021-04-11] MEDS: Metoprolol Succinate 25 MG Tab.ER PO SCH (10:54)
[2021-04-11] MEDS: amLODIPine 5 MG Tab PO SCH (10:54)
[2021-04-11] MEDS: Aspirin 81 MG Tab.EC PO SCH (10:54)
[2021-04-11] MEDS: Clopidogrel 75 MG Tab PO SCH (10:54)
--- NOTE | 2021-04-11 11:50 | PN ---
DATE OF VISIT: 04/11/2021 SUBJECTIVE: Rosamaria remained very drowsy and difficult to arouse throughout the day and into the evening last night. Overnight, she seems to have returned to baseline gradually to the extent that she is now awake, opening her eyes, following commands, and answering questions appropriately. She is totally unaware of the events that have transpired for the past 2 days for which she is taking liquids orally and her vital signs are stable. She is afebrile. PHYSICAL EXAMINATION: NEUROLOGIC: She moves all 4 extremities to command. She answers questions appropriately now and does engage in conversation. Her pupils are equally round and reactive to light. CHEST: Clear to auscultation. CARDIAC: Regular rate without murmur. NEURO: She moves all 4 extremities to command. No muscle weakness is noted. IMPRESSION: Improved following a prolonged postictal state subsequent to seizure (see admission H and P). PLAN: I re-reviewed her CT scan results, which did show multiple old infarcts and some encephalomalacia and some cortical atrophy, but no acute changes. We are awaiting a Keppra level since that will be important to ascertain hopefully to obviate future seizures if she is not receiving an adequate dose. We will see if we can get her up and ambulating today, and if she is able to eat and ambulate adequately, I would anticipate she should be able to go home tomorrow. We would like to see her Keppra levels before going home ideally. She seems to understand and agrees with this plan. RADHA/DOMINGO /[id number]
--- NOTE | 2021-04-12 04:14 | DISCH ---
HOSPITAL COURSE: This 85-year-old woman with dementia and a past history of CVAs with a known seizure disorder was brought in by paramedics after she was found by her daughter-in- law with whom she was staying in a nonresponsive state. For details concerning that and her HPI, please consult the admission history and physical. She was admitted and was unresponsive, and it was felt that she most likely had suffered a seizure and was postictal. In the course of her evaluation in the emergency room, she was totally unresponsive and only responded to withdrawal from painful stimulation. She did move spontaneously but not to command. On the day she was admitted, routine bloods were obtained as well as an EKG and routine chemistries. She did have a leukocytosis of 18,400 with no anemia. Her CMP was unremarkable, and liver enzymes were not elevated. She did have a troponin I, which was normal at 0.037, and her EKG did not show any acute changes. A CT scan was done of her head, which showed some encephalomalacia as well as evidence of old infarcts, including lacunar infarcts. FURTHER HOSPITAL COURSE: She was admitted to the floor and kept on IV fluids and kept n.p.o. At one point while in the emergency room, she did receive some lorazepam because of combativeness x1, but nothing else was required. Over the ensuing 24 hours, she gradually woke up, and on the day prior to discharge, she began to eat, ambulate, and answer questions appropriately and was completely unaware of what had transpired since the event leading up to her admission. This is all consistent with her having had an unwitnessed seizure at home, which was what her daughter in-law suspected. She has been on Keppra at 500 mg p.o. b.i.d. ever since her seizure episodes occurred, and this dose is not changed. I suspect we may need to increase her Keppra dose, but we are currently waiting for Keppra levels to return before we make any kind of adjustment. She will be discharged back into the care of her family. It should be mentioned that it was her family's wishes too that she be placed on DNR and DNI, and we honor those wishes. Followup will be arranged. CANDY /[id number]
[2021-04-12] MEDS: Losartan 25 MG Tab PO SCH (08:12)
[2021-04-12] MEDS: Aspirin 81 MG Tab.EC PO SCH (08:12)
[2021-04-12] MEDS: LEVETIRACETAM 500 MG PO SCH (08:12)
[2021-04-12] MEDS: Levothyroxine 50 MCG Tab PO SCH (08:12)
[2021-04-12] MEDS: Clopidogrel 75 MG Tab PO SCH (08:13)
[2021-04-12] MEDS: Metoprolol Succinate 25 MG Tab.ER PO SCH (08:13)
[2021-04-12] MEDS: amLODIPine 5 MG Tab PO SCH (08:13)
[2021-04-12 08:14] VITALS: BP 153/77; PULSE 65
== END 2021-04-12 09:40 | disposition home or self-care (01) ==
LOC: LB.ED 09:34 → LB.MS 10:37 → UNDOADMOB 10:40 → LB.MS 10:40
PROVIDERS: ADMIT Surgery; ATTEND Surgery
DX: R56.9 Unspecified convulsions (principal); D72.829 Elevated white blood cell count, unspecified; E78.00 Pure hypercholesterolemia, unspecified; I10 Essential (primary) hypertension; F03.90 Unspecified dementia, unspecified severity, without behavioral disturbance, psychotic disturbance, mood disturbance, and anxiety; Z86.73 Personal history of transient ischemic attack (TIA), and cerebral infarction without residual deficits; Z98.890 Other specified postprocedural states
CPT/HCPCS: 36415; 70450; 71045; 80053; 80177; 81001; 83735; 84484; 85025; 93005; A0425; A0429; A9270-GY; J2060; U0002